=== PATIENT | male | born 1990 | race Hispanic/Latino ===

== ENCOUNTER 2025-03-30 23:29 | Inpatient (IN) | payer SELFPAY ==
[2025-03-31] MEDS ORDERED: HYDROcodone/Acetaminophen 5/325 mg Tablet ONE (01:43)
[2025-03-31 02:07] LABS: Troponin I Less than 0.010 ng/mL (< 0.028)
[2025-03-31] MEDS ORDERED: Calcium Carbonate 500 MG ChewTAB PO PRN (02:31)
[2025-03-31] MEDS ORDERED: Ondansetron PF 4 MG/2 ML Vial IVP PRN (02:31)
[2025-03-31] MEDS ORDERED: NO ANTITHROMBOTICS FS SCH (02:34)
[2025-03-31] MEDS ORDERED: hydrALAZINE 20 MG/ML VIAL SLOW IVP PRN (02:34)
[2025-03-31] MEDS ORDERED: niCARdipine 25 MG in Sodium Chloride 0.9% 250 ML 250 ML IVPB PRN (02:34)
[2025-03-31 03:04] VITALS: BMI 26.3
[2025-03-31] MEDS: Mupirocin 1 GM TUBE NASAL DECOLONIZATION TP SCH (03:41)
[2025-03-31] MEDS: Acetaminophen 325 MG TAB PO PRN (03:44)
[2025-03-31] MEDS: Ciprofloxacin 500 MG TAB PO SCH (05:28)
[2025-03-31] MEDS: valACYclovir 500 MG TAB PO SCH (09:25)
[2025-03-31] MEDS: Mupirocin 1 GM TUBE NASAL DECOLOIZATION TP SCH (09:25)
[2025-03-31] MEDS: predniSONE 20 MG TAB PO SCH (09:25)
[2025-03-31 21:22] VITALS: TEMP 98.5
[2025-03-31 21:43] LABS: Cocaine Metabolite Screen Negative (Negative); THC/Cannabinoid Screen PRELIM POSITIVE (Negative); Tricyclic Screen Negative (Negative)
[2025-03-31 23:21] LABS: #Basophils Less than 0.03 10x3/uL (0.0-0.2); #Eosinophils Less than 0.03 10x3/uL (0.0-0.7); #Monocytes 0.32 10x3/uL (0.11-0.59); #Neutrophils 5.49 10x3/uL (1.40-6.50); %Basophils 0.0 % (0.0-1.0); %Eosinophils 0.2 % (0.0-10.0); %Lymphocytes 11.6 % (21.0-51.0); %Monocytes 4.8 % (0.0-10.0); %Neutrophils 83.1 % (42.0-75.0); Hematocrit 40.4 % (42.0-52.0); Hemoglobin 14.9 g/dL (14.0-18.0); Mean Corpuscular Hemoglobin 34.5 pg (27.0-31.0); Mean Corpuscular Volume 93.5 fL (78.0-98.0); Platelet Count 158 10x3/uL (130-400); Red Blood Cell (RBC) Count 4.32 mill/uL (4.70-6.10); White Blood Cell (WBC) Count 6.61 10x3/uL (4.8-10.8)
[2025-03-31 23:34] LABS: INR-International Normal Ratio 1.1; PTT 30.1 sec (22.9-36.1); Prothrombin Time 14.6 sec (12.0-14.7)
[2025-03-31 23:35] LABS: D-Dimer Test 0.42 mcg/mL (0.27-0.43)
[2025-03-31 23:53] LABS: ALT (SGPT) 13 U/L (Less than 45); AST (SGOT) 21 U/L (11-34); Albumin 4.3 g/dL (3.1-4.5); Anion Gap 16 mmol/L (10-20); BUN (Urea Nitrogen) 14 mg/dL (8.9-20.6); Bilirubin, Total 0.7 mg/dL (0.3-1.2); Calcium 9.1 mg/dL (7.8-10.44); Carbon Dioxide 23 mmol/L (22-29); Cardiac Risk 3.1 (Less than 4.5); Chloride 103 mmol/L (98-107); Cholesterol 113 mg/dl (< 200 Desired); Globulin 3.0 g/dL (2.4-3.5); Glucose 124 mg/dL (70-105); HDL Cholesterol 37 mg/dL (>60 Neg Risk); LDL Cholesterol, Calculated 62 mg/dL; Potassium 3.6 mmol/L (3.5-5.1); Sodium 138 mmol/L (136-145); Triglycerides 69 mg/dL (Less than 150)
[2025-04-01 00:01] LABS: Alkaline Phosphatase 62 U/L (40-110)
[2025-04-01 00:13] LABS: Calc. Creatinine Clearance 119 mL/min (70-130)
[2025-04-01 08:04] LABS: CK (CPK) 95 U/L (30-200); Magnesium 1.7 mg/dL (1.6-2.6)
[2025-04-01] MEDS ORDERED: Aspirin 81 mg Enteric Coated Tablet PO SCH (09:00)
[2025-04-01] MEDS ORDERED: Enoxaparin 40 MG (0.4 mL) SYRINGE SC SCH (09:00)
[2025-04-01] MEDS ORDERED: Magnesium 2 GM/50 ML(in water) 2 GM in Premix 1 BAG IVPB SCH (09:00)
[2025-04-02 12:13] LABS: EliA APS New Method **** NEW METHOD ****
== END 2025-04-01 09:00 | disposition left against medical advice (07) | DRG 62 ==
LOC: ERS 23:29 → CCU 03-31 01:47 → IMCU/EMU 04-01 07:38
PROVIDERS: ADMIT Student in an Organized Health Care Education/Training Program; ATTEND Family Medicine
DX: I63.9 Cerebral infarction, unspecified (principal); G81.94 Hemiplegia, unspecified affecting left nondominant side; F41.9 Anxiety disorder, unspecified; R29.706 NIHSS score 6; G51.0 Bell's palsy; E87.6 Hypokalemia; R29.90 Unspecified symptoms and signs involving the nervous system; Z53.29 Procedure and treatment not carried out because of patient's decision for other reasons
CPT/HCPCS: 36415; 70450; 70551; 80053; 80061; 80306; 82550; 83090; 83735; 84443; 84484; 85025; 85300; 85303; 85306; 85307; 85598; 85610; 85730; 86147; 93306; J2270; J7512; Q0162